=== PATIENT | female | born 1970 | race American Indian/Alaskan Native ===

== ENCOUNTER 2022-12-30 15:58 | Emergency (ER) | payer OTHER ==
[2022-12-30 16:18] VITALS: BP 145/83
--- NOTE | 2022-12-30 16:53 | XRAY Report ---
PROCEDURE: Ankle 3 View BILAT INDICATIONS: Trauma TECHNIQUE: 3 views of each ankle were acquired. COMPARISON: None. FINDINGS: Bones: No fractures or dislocations. Ankle mortise is normally aligned. No suspicious bony lesions . Soft tissues: No tibiotalar joint effusion. Achilles tendon appears normal. IMPRESSION: No fractures. Reviewed by: Inge Palumbo MD on 12/30/2022 3:52 PM RICHA Approved by: Inge Palumbo MD on 12/30/2022 3:52 PM RICHA Station ID: [id number]
[2022-12-30] MEDS ORDERED: HYDROcod/ACETAM 5/325 MG TABLET PO STA (18:24)
--- NOTE | 2022-12-30 18:25 | ED Physician Documentation ---
PD HPI LOWER EXT INJURY - Stated complaint Stated Complaint: LT FOOT SPRAIN - Chief complaint Chief Complaint: Trauma Ext - History obtained from History obtained from: Patient - History of Present Illness PD HPI LOW EXT INJURY LOCATION: Left, Foot Where injury occurred: Home Timing - duration: Days (2) Timing - details: Gradual onset Pain level max: 7 Pain level now: 5 Improved by: Rest, Ice, Immobilization Worsened by: Moving, Palpating Associated symptoms: Swelling, Discolored Similar symptoms before: Has not had sx before Recently seen: Not recently seen - Additional information Additional information: 52-year-old female presents to the emergency department stating that she injured her left foot and bilateral ankles about 2 days ago. Has continued swelling and pain. There is bruising to the left foot as well. She states that she injured it walking across [employer]. Review of Systems Constitutional: denies: Fever, Chills GI: denies: Vomiting, Diarrhea Skin: denies: Rash Musculoskeletal: denies: Neck pain, Back pain Neurologic: denies: Headache PD PAST MEDICAL HISTORY - Past Medical History Past Medical History: No - Past Surgical History Past Surgical History: No - Allergies Allergies/Adverse Reactions: Allergies Allergy/AdvReac Type Severity Reaction Status Date / Time No Known Drug Allergies Allergy Verified 12/30/22 16:11 - Social History Does the pt smoke?: No Smoking Status: Never smoker Does the pt drink ETOH?: No Does the pt have substance abuse?: No - Immunizations Immunizations are current?: Yes PD ED PE NORMAL - Vitals Vital signs reviewed: Yes - General General: Alert and oriented X 3, No acute distress - HEENT HEENT: Moist mucous membranes - Derm Derm: Warm and dry - Extremities Extremities: Other (There is mild swelling to the bilateral ankles, mild tenderness over the bilateral lateral Malleoli. Neurovascular intact. There is also tenderness over the dorsum of the left foot as well as bruising over the dorsum of the left foot. Neurovascular intact. No deformity. Right foot is normal.) - Neuro Neuro: Alert and oriented X 3 - Psych Psych: Normal mood, Normal affect Results - Vitals Vitals: Oxygen O2 Source Room air - Rads (name of study) Bilateral ankle x-ray Relevant Findings:: Final report received, See rad report Left foot x-ray Relevant Findings:: Final report received, See rad report Procedures - Splint (location) - Minor Left lower extremity Splint applied by: Physician, Tech Type of splint: Fiberglass, Short leg, Posterior Other: Patient tolerated well, No complications, Neurovascular intact, Crutches provided PD Medical Decision Making - ED course Complexity details: reviewed results, re-evaluated patient, considered differential, d/w patient ED course: 52-year-old female with what appears to be a mild bilateral ankle sprain, left foot does show a second metatarsal fracture, possible medial cuboid fracture as well as a first metatarsal fracture. Possible mild Lisfranc injury. Placed in a short leg posterior splint. We will have her follow-up with orthopedics for further care. Patient declines pain medication here or for home. Patient counseled regarding signs and symptoms for which I believe and urgent re- evaluation would be necessary. Patient with good understanding of and agreement to plan and is comfortable going home at this time This document was made in part using voice recognition software. While efforts are made to proofread this document, sound alike and grammatical errors may occur. Departure - Departure Disposition: 01 Home, Self Care Clinical Impression: Foot fracture, left Qualifiers: Encounter type: initial encounter Fracture type: closed Qualified Code(s): S92.902A - Unspecified fracture of left foot, initial encounter for closed fracture Condition: Good Instructions: ED Fx Foot Follow-Up: Orthopedic Care [Provider Group] - Within 1 week Comments: Please make sure that you follow-up with an orthopedist of your choice within 1 week. You have a second metatarsal fracture, a ParsonsYou have a second metatarsal fracture, a possible first metatarsal fracture as well as lateral margin of the medial cuneiform. You have mild widening of the interspace between the first and second metatarsals could represent an associated Lisfranc injury. Please take the copy of your x-rays with you to your appointment. Your x-ray reading as below. Please return if you worsen TECHNIQUE: 3 views of the foot were acquired. COMPARISON: None. FINDINGS: Bones: There is a displaced fracture involving the base of the left second metatarsal with suggestion of widening of the interspace between the base of the first and second metatarsal. Subtle cortical regularity involving the lateral margin of the medial cuneiform. Soft tissues: No suspicious soft tissue calcifications or masses. Soft tissue swelling of the left foot. IMPRESSION: Mildly displaced fracture of the proximal left second metatarsal and possible fracture of the proximal first metatarsal and lateral margin of the medial cuneiform. Additionally, mild widening of the interspace between the base of the first and second metatarsals which may represent associated Lisfranc injury. Forms: Activity restrictions Discharge Date/Time: 12/30/22 19:59
--- NOTE | 2022-12-30 18:47 | XRAY Report ---
PROCEDURE: Foot 3 View LT INDICATIONS: fall, L foot pain TECHNIQUE: 3 views of the foot were acquired. COMPARISON: None. FINDINGS: Bones: There is a displaced fracture involving the base of the left second metatarsal with suggestio n of widening of the interspace between the base of the first and second metatarsal. Subtle cortical regularity involving the lateral margin of the medial cuneiform. Soft tissues: No suspicious soft tissue calcifications or masses. Soft tissue swelling of the left foot. IMPRESSION: Mildly displaced fracture of the proximal left second metatarsal and possible fracture of the proxima l first metatarsal and lateral margin of the medial cuneiform. Additionally, mild widening of the int erspace between the base of the first and second metatarsals which may represent associated Lisfranc injury. Reviewed by: John Gonzales MD on 12/30/2022 6:45 PM PDT Approved by: John Gonzales MD on 12/30/2022 6:45 PM PDT Station ID: [id number]
== END 2022-12-30 19:59 | disposition home or self-care (01) ==
LOC: ED 15:58
DX: S92.322A Displaced fracture of second metatarsal bone, left foot, initial encounter for closed fracture (principal); S92.312A Displaced fracture of first metatarsal bone, left foot, initial encounter for closed fracture; W18.30XA Fall on same level, unspecified, initial encounter; Y93.01 Activity, walking, marching and hiking; Y92.89 Other specified places as the place of occurrence of the external cause
CPT/HCPCS: 29515; 73610; 73630; 99283; A9270

== ENCOUNTER 2023-01-02 08:00 | Outpatient (CLI) | payer OTHER ==
--- NOTE | 2023-01-02 15:15 | XRAY Report ---
PROCEDURE: Tib/Fib LT INDICATIONS: LEFT ANKLE FRACTURE TECHNIQUE: 2 views of the tibia and fibula were acquired. COMPARISON: X-ray ankle 01/02/2023, x-ray foot and ankle 12/30/2022 FINDINGS: Bones: Lucency identified overlying the posterior aspect of the tibia. Seen only on lateral view. Soft tissues: No suspicious soft tissue calcifications or masses. IMPRESSION: Posterior tibial lucency suspicious for fracture. Is not present on prior exam. While this could be a rtifactual, recommend correlation of point tenderness. Reviewed by: Lilly Montague MD on 01/02/2023 3:13 PM PDT Approved by: Lilly Montague MD on 01/02/2023 3:13 PM PDT Station ID: [id number]
--- NOTE | 2023-01-02 17:46 | XRAY Report ---
PROCEDURE: Ankle 3 View LT INDICATIONS: LEFT ANKLE PAIN TECHNIQUE: 3 views of the ankle were acquired. COMPARISON: 12/30/2022 FINDINGS: Bones: Minimally is now a vertical fracture through the distal tibial posterior malleolus with softe jolanta the fracture line. Soft tissues: No tibiotalar joint effusion. Achilles tendon appears normal. Soft tissue swelling h as improved IMPRESSION: Healing distal tibial posterior malleolar fracture Reviewed by: Howard Arias MD on 01/02/2023 4:45 PM RICHA Approved by: Howard Arias MD on 01/02/2023 4:45 PM AKIBETH Station ID: [id number]
--- NOTE | 2023-01-02 17:52 | XRAY Report ---
PROCEDURE: Foot 3 View LT INDICATIONS: LEFT FOOT PAIN TECHNIQUE: 3 views of the foot were acquired. COMPARISON: 12/30/2022 FINDINGS: Bones: There is been softening the fracture line associated with the second metatarsal. Base of the first metatarsal unremarkable. Normal bone mineralization. Soft tissue swelling improved. Soft tissues: No suspicious soft tissue calcifications or masses. IMPRESSION: Healing second metatarsal fracture Reviewed by: Howard Arias MD on 01/02/2023 4:51 PM RICHA Approved by: Howard Arias MD on 01/02/2023 4:51 PM AKDT Station ID: [id number]
== END 2023-01-02 23:59 | disposition home or self-care (01) ==
LOC: DI.WOS 08:00
PROVIDERS: ATTEND Orthopaedic Surgery
DX: S92.322D Displaced fracture of second metatarsal bone, left foot, subsequent encounter for fracture with routine healing (principal); S82.892D Other fracture of left lower leg, subsequent encounter for closed fracture with routine healing